=== PATIENT | female | born 1960 | race Hispanic/Latino ===

== ENCOUNTER 2023-12-29 19:19 | Emergency (ER) | payer SELFPAY ==
[~2023-12-29] VITALS: Ht 170.2 cm; Wt 75.3 kg
[2023-12-29 20:11] VITALS: PULSE 69; RESP 16; TEMP 98.3
[2023-12-29 20:45] LABS: BASOPHILS % 0.3 % (0.0-1.0); EOSINOPHILS # (AUTO) 0.1 (0.0-0.4); EOSINOPHILS % 1.4 % (0.0-6.0); HEMATOCRIT 41.3 % (34.2-44.1); HEMOGLOBIN 13.6 g/dL (12.0-16.0); LYMPHOCYTES % 32.1 % (18.0-39.1); MEAN CORPUSCULAR HEMOGLOBIN 29.4 pg (28-32); MEAN CORPUSCULAR HGB CONC 32.9 g/dL (31-35); MEAN CORPUSCULAR VOLUME 89.4 fL (81-99); MONOCYTES # (AUTO) 0.4 (0.2-0.8); MONOCYTES % 5.7 % (4.4-11.3); NEUTROPHILS # (AUTO) 3.8 (2.1-6.9); NEUTROPHILS % 60.3 % (38.7-80.0); PLATELET COUNT 259 x10e3/uL (140-360); RED BLOOD COUNT 4.62 x10e6/uL (3.6-5.1); RED CELL DISTRIBUTION WIDTH 13.4 % (11.7-14.4); WHITE BLOOD COUNT 6.32 x10e3/uL (4.8-10.8)
[2023-12-29] MEDS: DIPHENHYDRAMINE HCL INJ 50 MG/ML VIAL IV STA (20:51)
[2023-12-29] MEDS: METOCLOPRAMIDE HCL 10 MG/2ML VIAL IV STA (20:51)
[2023-12-29] MEDS: KETOROLAC TROMETHAMINE 30 MG/ML VIAL IV STA (20:51)
[2023-12-29] MEDS: METHYLPREDNISOLONE SOD SUCC 125 MG/2ML VIAL IV STA (20:51)
[2023-12-29] MEDS: SODIUM CHLORIDE 0.9% 1000ML 1,000 ML IV STA (20:51)
[2023-12-29 21:02] LABS: ANION GAP 13.6 mmol/L (8-16); BILIRUBIN,TOTAL 0.4 mg/dL (0.2-1.2); CALCIUM 8.7 mg/dL (8.4-10.2); CREATININE, SERUM 0.67 mg/dL (0.57-1.11); POTASSIUM 3.6 mmol/L (3.5-5.1)
[2023-12-29 21:47] VITALS: BP 100/73; PULSE 65; RESP 16; TEMP 98; O2SAT 100
== END 2023-12-29 21:40 | disposition home or self-care (01) ==
LOC: ER 19:25
DX: R51.9 Headache, unspecified (principal); R11.2 Nausea with vomiting, unspecified; Z11.52 Encounter for screening for COVID-19
CPT/HCPCS: 36415; 70450; 80053; 85025; 99283; J1200; J1885; J2765; J2919; J7030; U0002